=== PATIENT | female | born 1970 | race Two or more races ===

== ENCOUNTER 2021-10-22 08:59 | Outpatient (CLI) | payer OTHER | END 2021-10-22 09:02 | disposition home or self-care (01) | LOC: SONOGRAMA 08:59 | PROVIDERS: ATTEND Pathology Anatomic Pathology & Clinical Pathology | DX: C50.411 Malignant neoplasm of upper-outer quadrant of right female breast (principal); R59.0 Localized enlarged lymph nodes ==